=== PATIENT | female | born 1990 | race Hispanic/Latino ===

== ENCOUNTER 2023-11-10 21:51 | Emergency (ER) | payer MEDICAID, OTHER ==
[~2023-11-10] VITALS: Ht 157.5 cm; Wt 158.8 kg
[2023-11-10 22:09] LABS: BASOPHILS # (AUTO) 0.06 K/uL (0.00-0.20); BASOPHILS % (AUTO) 0.5 % (0.0-5.0); EOSINOPHILS % (AUTO) 1.5 % (0.0-8.0); HEMATOCRIT 39.7 % (36-48); IMMATURE GRANULOCYTE ABSOLUTE 0.09 K/uL (0-1); LYMPHOCYTES # (AUTO) 4.8 K/uL (1.0-4.8); LYMPHOCYTES % (AUTO) 35.9 % (21.0-51.0); MEAN CORPUSCULAR HEMOGLOBIN 30.9 pg (27.0-33.0); MEAN CORPUSCULAR HGB CONC 33.5 g/dL (32.0-36.0); MEAN CORPUSCULAR VOLUME 92.3 fL (79-99); MONOCYTES # (AUTO) 0.7 K/uL (0.1-1.0); MONOCYTES % (AUTO) 5.6 % (3.0-13.0); NEUTROPHILS # (AUTO) 7.5 K/uL (1.8-7.7); NEUTROPHILS % (AUTO) 55.8 % (40.0-77.0); PLATELET COUNT (AUTO) 301 K/uL (130-400); RED CELL DISTRIBUTION WIDTH 12.5 % (11.0-15.5); WHITE BLOOD COUNT (AUTO) 13.3 K/uL (4.8-10.8)
[2023-11-10 22:21] LABS: CREATININE 0.6 mg/dL (0.5-1.5); POTASSIUM 4.5 mmol/L (3.5-5.1)
[2023-11-10 22:25] LABS: ALBUMIN 3.5 g/dL (3.5-5.0); BILIRUBIN,TOTAL 0.3 mg/dL (0.2-1.0); TOTAL PROTEIN, SERUM 8.1 g/dL (6.0-8.3)
[2023-11-10] MEDS ORDERED: ALPRAZOLAM 0.5 MG TABLET PO ONE (22:30)
[2023-11-10] MEDS ORDERED: IOHEXOL 350 MG/ML 100ML INFUS..BTL IV ONE ×2 (23:43→23:55)
[2023-11-10] MEDS ORDERED: ONDANSETRON 4MG INJ ONE (23:56)
[2023-11-11] MEDS ORDERED: ONDANSETRON 4MG INJ IVP ONE
[2023-11-11 00:47] LABS: APPEARANCE,URINE CLEAR (CLEAR); BILIRUBIN,URINE NEGATIVE (NEGATIVE); COLOR,URINE COLORLESS (YELLOW); GLUCOSE, URINE (UA) NEGATIVE (NEGATIVE); KETONES,URINE NEGATIVE (NEGATIVE); LEUKOCYTE ESTERASE ,URINE NEGATIVE Leu/uL (NEGATIVE); NITRATE,URINE NEGATIVE (NEGATIVE); OCCULT BLOOD,URINE NEGATIVE (NEGATIVE); PROTEIN,URINE 10 mg/dL (NEGATIVE); UROBILINOGEN,URINE 0.2 mg/dL (0.2-1.0)
[2023-11-11 00:50] LABS: ADD UA MICROSCOPIC NO
[2023-11-11 00:51] LABS: MUCUS,URINE RARE LPF (None Seen); SQUAMOUS EPITHELIAL CELL,UR RARE /HPF (0-2); WBC,URINE 0-1 /HPF (0-1)
[2023-11-11 00:53] LABS: INR < 0.93 (0.85-1.15); PROTHROMBIN TIME 9.8 SEC (9.6-11.6)
[2023-11-11 06:20] VITALS: BP 152/70; PULSE 84; RESP 19; O2SAT 97
[2023-11-11] MEDS ORDERED: PHARMACY COMMUNICATION MISC SCH (22:30)
== END 2023-11-11 07:26 | disposition home or self-care (01) ==
LOC: EDH 21:51
DX: R07.89 Other chest pain (principal); F41.9 Anxiety disorder, unspecified
CPT/HCPCS: 99285; 70496; 96374; 71045; 82550; 84484; 80053; 83880; 84703; 85025; 85610; 85730; 82948; 81001; 36415; 74175; 71275; 70498; 70450; 81003; 70551; J2405; Q9967 ×2

== ENCOUNTER 2024-07-08 08:52 | Emergency (ER) | payer MEDICAID ==
[~2024-07-08] VITALS: Ht 157.5 cm; Wt 158.8 kg
[2024-07-08] MEDS ORDERED: FLUC150T48 PO (10:45)
[2024-07-08 11:40] VITALS: BP 133/75; PULSE 74; RESP 18; O2SAT 98
== END 2024-07-08 11:41 | disposition home or self-care (01) ==
LOC: EDH 08:52
DX: T19.2XXA Foreign body in vulva and vagina, initial encounter (principal); B37.9 Candidiasis, unspecified; I10 Essential (primary) hypertension; J45.909 Unspecified asthma, uncomplicated; Z79.899 Other long term (current) drug therapy; Z88.8 Allergy status to other drugs, medicaments and biological substances; Z98.890 Other specified postprocedural states; W44.8XXA Other foreign body entering into or through a natural orifice, initial encounter
CPT/HCPCS: 76856